=== PATIENT | female | born 1960 | race Caucasian/White ===

== ENCOUNTER 2024-09-26 09:07 | Emergency (ER) | payer OTHER ==
--- OUTSIDE RECORDS SUMMARY | 2024-09-26 09:12 | XMS REPORT | Continuity of Care Document ---
Author Name Unknown Address [address] [facility] [address] [place] [address] [facility] Address [address] [place] [address] Care Team Providers Care Chief Digital Media Officer Name Role Phone PCP, PATIENT DOES NOT HAVE A Primary Care Physic leslie Unavailable HOMER LESTER Attending Clinician Unavailabl e GONZALES BAILEY Attending Clinician Unavailable CRISTELA FARAH Attending Clinician Unavailable CRISTELA FARAH Attending Clinician Unavailable DEEPA CAI Attending Clinician Unavailable Deepa Cai MD Attending Clinician [phone] Julienne Mayer LMSW Attending Clinician Unava ilable Doctor Unassigned, [place] Attending Clinician U navailable AMBER RUCKER Attending Clinician Unavailable BETO CARTY Attending Clinician Unavailable CARMEN WAEKFIELD Attending Clinician Unavailable Shaye Crockett RN Attending Clinician [phone] Whit Dahl MD Attending Clinician [phone] Gonzales Bailey DO Attending Clinician [phone] GONZALES BAILEY Admitting Clinician Unavailable Gonzales Bailey DO Admitting Clinician +[phone] Problems Condition Name Condition Details Condition Category Status Onset Date Resolution Date Last Treatment Date Treating Clinician Comments Source Hypertensi ve disorder Hypertensi ve Disorder Problem Active 08-10 00:00: 00 [facility] Cerebrovas cular accident Cerebrovas cular Accident Problem Active 08-10 00:00: 00 [facility] Obesity (BMI 30-39.9) Obesity (BMI 30-39.9) Disease Active 01-13 00:00: 00 [facility] NSTEMI (non-ST elevated myocardial infarction ) NSTEMI (non-ST elevated myocardial infarction ) Disease Active 01-12 00:00: 00 [facility] Colon cancer Colon cancer Disease Recurre nce 01-12 00:00: 00 [facility] HTN (hypertens ion) HTN (hypertens ion) Disease Active 01-12 00:00: 00 [facility] Allergies, Adverse Reactions, Alerts Allergy Name Allergy Type Status Severity Reaction(s) Onset Date Inactive Date Treating Clinician Comments Source NO KNOWN ALLERGIE S Drug Class Active [facility] Social History Social Habit Start Date Stop Date Quantity Comments Source History of tobacco use Smokes tobacco daily [facility] Exposure to SARS-CoV-2 (event) Not sure [facility] History of Social function 2023-08-12 00:00:00 2023-08-12 00:00:00 [facility] Tobacco use and exposure 2023-08-05 00:00:00 2023-08-05 00:00:00 Smokeless tobacco non-user [facility] Alcohol intake 2023-08-05 00:00:00 2023-08-05 00:00:00 Ex-drinker (finding) [facility] Sex Assigned At 1960 00:00:00 1960 00:00:00 [facility] Smoking Status Start Date Stop Date Source Never Smoker [facility] Smokes tobacco daily 2023-08-05 00:00:00 [facility] Medications Ordered Medication Name Filled Medication Name Start Date Stop Date Current Medication? Ordering Clinician Indication Dosage Frequency Signature (SIG) Comments Components Source fluconazole 150 mg tablet 08-09 00:00: 00 08-10 05:59 :00 No [id number] 150mg Take 1 tablet by mouth once now for 1 dose. [facility] lisinopriL 10 mg tablet 2022-08 09:33: 34 Yes 10mg Take 1 tablet by mouth in the morning. [facility] lisinopriL 10 mg tablet 01-14 22:12: 47 Yes 10mg Take 10 mg by mouth daily. [facility] HYDROcodone -acetaminop hen (NORCO 5) 5-325 mg tablet 1 tablet 01-14 20:19: 00 01-16 20:18 :00 No 1{tbl} 1 tablet, Oral, Q6HPRN, Starting Tue01/14/21 at 1519, Until Tue01/16/21 at 1518, Routine, Pain (scale 4-6) [facility] lisinopriL 10 mg tablet 01-14 17:12: 47 Yes 10mg Take 10 mg by mouth daily. [facility] FENTanyl PF (SUBLIMAZE (PF)) injection 01-14 15:49: 41 01-14 15:49 :41 No Slow IV Push, TITRATE - FOR PROCEDURE USE, 1 dose, Starting Tue01/14/21 at 1049, Until Tue01/14/21 at 1049, Routine [facility] midazolam (VERSED) injection 01-14 15:49: 32 01-14 15:49 :32 No IV Push, TITRATE - FOR PROCEDURE USE, 1 dose, Starting Tue01/14/21 at 1049, Until Tue01/14/21 at 1049, Routine [facility] verapamiL (ISOPTIN) injection 01-14 15:48: 24 01-14 15:48 :24 No Intravenou s, TITRATE - FOR PROCEDURE USE, 1 dose, Starting Tue01/14/21 at 1048, Until Tue01/14/21 at 1048, Routine [facility] nitroglycer in (TRIDIL) 2 mg in 10 mL D5W for Cardiac Cath 01-14 15:48: 09 01-14 15:48 :09 No Intravenou s, TITRATE - FOR PROCEDURE USE, 1 dose, Starting Tue01/14/21 at 1048, Until Tue01/14/21 at 1048, Routine [facility] [place] [place] heparin 1,000 unit/mL injection 01-14 15:47: 48 01-14 15:47 :48 No Slow IV Push, TITRATE - FOR PROCEDURE USE, 1 dose, Starting Tue01/14/21 at 1047, Until Tue01/14/21 at 1047, Routine [facility] [place] FENTanyl PF (SUBLIMAZE (PF)) injection 01-14 15:44: 59 01-14 15:44 :59 No Slow IV Push, TITRATE - FOR PROCEDURE USE, 1 dose, Starting Tue01/14/21 at 1044, Until Tue01/14/21 at 1044, Routine [facility] midazolam (VERSED) injection 01-14 15:44: 52 01-14 15:44 :52 No IV Push, TITRATE - FOR PROCEDURE USE, 1 dose, Starting Tue01/14/21 at 1044, Until Tue01/14/21 at 1044, Routine [facility] lidocaine 1% (PF) (XYLOCAINE) injection 01-14 15:44: 14 01-14 15:44 :14 No Infiltrati on, TITRATE - FOR PROCEDURE USE, 1 dose, Starting Tue01/14/21 at 1044, Until Tue01/14/21 at 1044, Routine [facility] NaCl 0.9% (NS) bolus infusion 01-14 15:41: 43 01-14 15:56 :43 No IV Infusion, CONTINUOUS PRN, Starting Tue01/14/21 at 1041, Until Tue01/14/21 at 1056, STAT [facility] FENTanyl PF (SUBLIMAZE (PF)) injection 01-14 15:35: 22 01-14 15:35 :22 No Slow IV Push, TITRATE - FOR PROCEDURE USE, 1 dose, Starting Tue01/14/21 at 1035, Until Tue01/14/21 at 1035, Routine [facility] [place] [place] midazolam (VERSED) injection 01-14 15:35: 11 01-14 15:35 :11 No IV Push, TITRATE - FOR PROCEDURE USE, 1 dose, Starting Tue01/14/21 at 1035, Until Tue01/14/21 at 1035, Routine [facility] aspirin 81 mg chewable tablet 01-14 00:00: 00 Yes [id number] 81mg Take 1 tablet by mouth daily. [facility] pantoprazol e 40 mg EC tablet 01-14 00:00: 00 Yes [id number] 40mg Take 1 tablet by mouth daily. [facility] atorvastati n 40 mg tablet 01-14 00:00: 00 Yes [id number] 40mg Take 1 tablet by mouth every evening. [facility] levoFLOXaci n 500 mg tablet 01-14 00:00: 00 Yes [id number] 500mg Take 1 tablet by mouth every 24 (twenty-fo ur) hours. [facility] ondansetron 4 mg tablet 01-14 00:00: 00 Yes [id number] 4mg Take 1 tablet by mouth every 8 (eight) hours as needed for N/V unresponsi ve to Promethazi ne. [facility] levoFLOXaci n in D5W (LEVAQUIN) 500 mg/100 mL Piggyback 500 mg 01-13 19:00: 00 01-16 18:59 :00 No 500mg 500 mg, IV Piggyback, Administer over 60 Minutes, Q24H ABX, 3 doses, First dose on Tue01/13/21 at 1400, Last dose on Tue01/15/21 at 1400, ISABELLE
Re ason for Anti-Infec tive: Empiric Therapy for Suspected Infection< br>Empiric Therapy Site: Abdominal< br>Duratio n of therapy: 72 hours [facility] aspirin chewable tablet 81 mg 01-13 14:00: 00 Yes 81mg 81 mg, Oral, DAILY, First dose on Tue01/13/21 at 0900, Until Discontinu ed, Routine [facility] lisinopriL (PRINIVIL,Z ESTRIL) tablet 10 mg 01-13 14:00: 00 Yes 10mg 10 mg, Oral, DAILY, First dose on Tue01/13/21 at 0900, Until Discontinu ed, Routine [facility] [place] [place] iopamidol (ISOVUE 370-500 mL) injection 100 mL 01-13 08:12: 00 01-13 08:12 :00 No [id number] 100mL 100 mL, Intravenou s, ONCE, 1 dose, Tue01/13/21 at 0330, Routine [facility] heparin 5,000 unit/mL injection 5,000 Units 01-13 03:46: 57 01-14 16:23 :39 No 5000U 5,000 Units, Slow IV Push, PRN, Starting Tue01/12/21 at 2246, Until Tue01/14/21 at 1123, Routine, heparin drip [facility] zolpidem (AMBIEN) tablet 5 mg 01-13 02:04: 42 Yes 5mg 5 mg, Oral, QHSPRN, Starting Tue01/12/21 at 2104, Until Discontinu ed, Routine, Insomnia [facility] ketorolac (TORADOL) injection 30 mg 01-12 22:28: 52 01-14 01:59 :00 No 30mg 30 mg, Intramuscu lar, Q6HPRN, 4 doses, Starting Tue01/12/21 at 1728, Until Discontinu ed, Routine, Pain (scale 7-10)
F aculty member approving Restricted medication : BRANDEN SCHAFFER [facility] pantoprazol e (PROTONIX) 40 mg in NaCl 0.9% (NS) 100 mL MINI-BAG 01-12 18:00: 00 Yes 40mg 40 mg, IV Piggyback, Q12H, First dose on Tue01/12/21 at 1300, Until Discontinu ed, 100 mL [facility] nitroglycer in (NITROSTAT) sublingual tablet 0.4 mg 01-12 17:50: 11 Yes .4mg 0.4 mg, Sublingual , Q5MIN PRN, Starting Tue01/12/21 at 1250, Until Discontinu ed, Routine, Chest pain [facility] [place] morpHINE injection 2 mg 01-12 17:49: 56 Yes 2mg 2 mg, Slow IV Push, Q3HPRN, Starting Tue01/12/21 at 1249, Until Discontinu ed, Routine, Chest pain, 1-[address] [facility] [place] ondansetron (ZOFRAN (PF)) injection 4 mg 01-12 17:41: 19 Yes 4mg 4 mg, Slow IV Push, Q6HPRN, Starting Tue01/12/21 at 1241, Until Discontinu ed, Routine, Nausea and Vomiting (N/V) [facility] [place] [place] HYDROcodone -acetaminop hen (NORCO 5) 5-325 mg tablet 1 tablet 01-12 17:41: 11 01-14 17:40 :11 No 1{tbl} 1 tablet, Oral, Q6HPRN, Starting Tue01/12/21 at 1241, Until Tue01/14/21 at 1240, Routine, Pain (scale 4-6) [facility] [place] acetaminoph en (TYLENOL) tablet 650 mg 01-12 17:41: 08 Yes 650mg 650 mg, Oral, Q6HPRN, Starting Tue01/12/21 at 1241, Until Discontinu ed, Routine, Pain (scale 1-3) [facility] [place] [place] diazepam diazepam No diazepam Sneha [facility] sucralfate 1 gram tablet Take 1 tablet 4 times a day by oral route. sucralfate 1 gram tablet Take 1 tablet 4 times a day by oral route. No 1 QID sucralfate 1 gram tablet Take 1 tablet 4 times a day by oral route. Snhea [facility] Vital Signs Vital Name Observation Time Observation Value Nikki morales Body Weight 2024-08-10 00:00:00 105 [lb_av] [facility] BP Diastolic 2024-08-10 00:00:00 72 mm[Hg] [facility] BP Systolic 2024-08-10 00:00:00 112 mm[Hg] Ryan cruz [facility] Systolic blood pressure 2023-08-19 19:48:00 135 mm[Hg] [facility] Diastolic blood pressure 2023-08-19 19:48:00 89 mm[Hg] [facility] Heart rate 2023-08-19 19:47:00 72 /min [facility] Body temperature 2023-08-19 19:47:00 36.67 Jennifer [facility] Respiratory rate 2023-08-19 19:47:00 17 /min [facility] Body height 2023-08-19 19:47:00 152.4 cm [facility] Body weight 2023-08-19 19:47:00 68.13 kg [facility] BMI 2023-08-19 19:47:00 29.33 kg/m2 [facility] Systolic blood pressure 2023-08-12 21:05:00 106 mm[Hg] [facility] Diastolic blood pressure 2023-08-12 21:05:00 76 mm[Hg] [facility] Heart rate 2023-08-12 21:05:00 79 /min [facility] Body temperature 2023-08-12 21:05:00 36.78 Jennifer [facility] Respiratory rate 2023-08-12 21:05:00 17 /min [facility] Body weight 2023-08-12 21:05:00 68.493 kg [facility] BMI 2023-08-12 21:05:00 27.62 kg/m2 [facility] Systolic blood pressure 2023-08-05 15:32:00 123 mm[Hg] [facility] Diastolic blood pressure 2023-08-05 15:32:00 84 mm[Hg] [facility] Heart rate 2023-08-05 15:32:00 74 /min [facility] Body temperature 2023-08-05 15:32:00 36.44 Jennifer [facility] Respiratory rate 2023-08-05 15:32:00 18 /min [facility] Body height 2023-08-05 15:32:[address] [facility] Body weight 2023-08-05 15:32:00 69.4 kg [facility] BMI 2023-08-05 15:32:00 27.98 kg/m2 [facility] Heart rate 2021-01-14 19:59:00 109 /min [facility] [place] [place] Oxygen saturation in Arterial blood by Pulse oximetry 2021-01-14 19:59:00 93 /min [facility] Systolic blood pressure 2021-01-14 19:58:00 110 mm[Hg] [facility] Diastolic blood pressure 2021-01-14 19:58:00 78 mm[Hg] [facility] Body temperature 2021-01-14 19:58:00 37.94 Jennifer [facility] Respiratory rate 2021-01-14 19:58:00 18 /min [facility] Body height 2021-01-14 15:22:19 157.5 cm [facility] Body weight 2021-01-14 15:22:19 74.5 kg [facility] BMI 2021-01-14 15:22:19 30.04 kg/m2 [facility] Heart rate 2021-01-14 19:59:00 109 /min [facility] [place] [place] Oxygen saturation in Arterial blood by Pulse oximetry 2021-01-14 19:59:00 93 /min [facility] Systolic blood pressure 2021-01-14 19:58:00 110 mm[Hg] [facility] Diastolic blood pressure 2021-01-14 19:58:00 78 mm[Hg] [facility] Body temperature 2021-01-14 19:58:00 37.94 Jennifer [facility] Respiratory rate 2021-01-14 19:58:00 18 /min [facility] Body height 2021-01-14 15:22:19 157.5 cm [facility] Body weight 2021-01-14 15:22:19 74.5 kg [facility] BMI 2021-01-14 15:22:19 30.04 kg/m2 [facility] Procedures Procedure Date / Time Performed Performing Clinician Source POCT URINALYSIS W/O SPECIFIC GRAVITY 2023-08-19 00:00:00 Cristela Farah [facility] URINALYSIS MICROSCOPIC 2023-08-05 16:23:00 Harris Farah [facility] URINE CULTURE 2023-08-05 16:23:00 Cristela Farah [facility] ASSIGNMENT OF BENEFITS 2023-08-05 15:18:13 Docto r Unassigned, [place] [facility] REFERRAL- REQUEST/RESPONSE 2023-07-28 06:01:00 D mariano Unassigned, [place] [facility] CATH PROCEDURE LOG 2021-01-14 15:44:34 Doctor Un assigned, [place] [facility] CATH PROCEDURE LOG 2021-01-14 15:44:34 Doctor Un assigned, [place] [facility] ACTIVATED PARTIAL THRMPLAS ROSS 2021-01-14 13:33:00 Lynn [facility] ACTIVATED PARTIAL THRMPLAS ROSS 2021-01-14 13:33:00 Lynn [facility] ACTIVATED PARTIAL THRMPLAS ROSS 2021-01-14 01:24:00 Lynn [facility] ACTIVATED PARTIAL THRMPLAS ROSS 2021-01-14 01:24:00 [facility] 2021-01-13 22:32:54 [facility] 2021-01-13 22:32:54 Gonzales Bailey [facility] ACTIVATED PARTIAL THRMPLAS ROSS 2021-01-13 17:20:00 Lynn [facility] ACTIVATED PARTIAL THRMPLAS ROSS 2021-01-13 17:20:00 Lynn [facility] DUPLEX VENOUS LEGS BILATERAL - BY VASCULAR LAB 2021-01-13 15:26:07 Branden Schaffer [facility] TROPONIN I 2021-01-13 13:26:00 Teq[place], [facility] TROPONIN I 2021-01-13 13:26:00 Dilciamaribel [facility] ACTIVATED PARTIAL THRMPLAS ROSS 2021-01-13 10:27:00 Dilciamaribel [facility] ACTIVATED PARTIAL THRMPLAS ROSS 2021-01-13 10:27:00 Dilciamaribel [facility] CBC WITH DIFF 2021-01-13 10:26:00 [facility] BASIC METABOLIC PANEL (NA, K, CL, CO2, GLUCOSE, BUN, CREATININE, CA) 2021-01-13 10:26:00 Dilciamaribel [facility] HEPATIC FUNCTION PANEL ([id number]) (ALB,T.PRO,BILI T,BU/BC,ALT,AST,ALK PHOS) 2021-01-13 10:26:00 Dilciamaribel [facility] TOTAL BETA HCG ASSAY 2021-01-13 10:26:00 Fernando Rhodes [facility] HEPATIC FUNCTION PANEL ([id number]) (ALB,T.PRO,BILI T,BU/BC,ALT,AST,ALK PHOS) 2021-01-13 10:26:00 Melania [facility] BASIC METABOLIC PANEL (NA, K, CL, CO2, GLUCOSE, BUN, CREATININE, CA) 2021-01-13 10:26:00 Dilciamaribel [facility] TOTAL BETA HCG ASSAY 2021-01-13 10:26:00 Fernando Rhodes [facility] CBC WITH DIFF 2021-01-13 10:26:00 Dilciamaribel [facility] CT ANGIOGRAM CHEST 2021-01-13 08:17:08 Sarbjit [facility] CT ANGIOGRAM CHEST 2021-01-13 08:17:08 Sarbjit [facility] TROPONIN I 2021-01-13 02:21:00 Dilciamaribel [facility] ACTIVATED PARTIAL THRMPLAS ROSS 2021-01-13 02:21:00 Gonzales Bailey [facility] TROPONIN I 2021-01-13 02:21:00 [facility] ACTIVATED PARTIAL THRMPLAS ROSS 2021-01-13 02:21:00 Gonzales Bailey [facility] TRANSTHORACIC ECHO (TTE) COMPLETE 2021-01-12 22:09:43 Lynn [facility] TRANSTHORACIC ECHO (TTE) COMPLETE 2021-01-12 22:09:43 Gonzales Bailey [facility] TROPONIN I 2021-01-12 18:40:00 Gonzales Bailey [facility] TROPONIN I 2021-01-12 18:40:00 Gonzales Bailey [facility] Operation on Intestine [place] [facility] Cholecystectomy [place] [facility] Encounters Start Date/Time End Date/Time Encounter Type Admission Type Attending Clinicians Care Facility Care Department Encounter ID Source 2024-10-08 12:15:00 Inpatient HOMER PURDY [facility] [id number] [facility] 2021-01-12 11:47:00 Inpatient U GONZALES BAILEY [facility] [id number] [facility] 2024-08-10 00:00:00 2024-08-10 00:00:00 Homer Lester MD: [address] [place] [address] , Ph. [facility] [phone] [facility] 2023-09-02 13:30:00 2023-09-02 13:30:00 Outpatient CRISTELA CHÁVEZ [facility] [id number] [facility] 2023-08-29 09:30:00 2023-08-29 09:30:00 Outpatient CRISTELA CHÁVEZ [facility] [id number] [facility] 2023-08-19 14:00:00 2023-08-19 14:30:00 Office Visit Cristela Farah [facility] [id number] [id number] [id number] [facility] 2023-08-19 14:00:00 2023-08-19 14:00:00 Outpatient R GAGANGINJACKI [facility] [id number] [facility] 2023-08-16 00:00:00 2023-08-16 00:00:00 Telephone Cristela Farah [facility] [id number] 350.1.13.10 4.2.7.2.686 [id number] [facility] 2023-08-12 14:30:00 2023-08-12 15:43:44 [address] [id number] [facility] 2023-08-12 14:30:00 2023-08-12 15:43:44 Office Visit Deepa Cai [facility] [id number] [id number] [id number] [facility] 2023-08-11 00:00:00 2023-08-11 00:00:00 Patient Outreach Julienne Mayer R [facility] [id number] 350.1.13.10 4.2.7.2.686 [id number] [facility] 2023-08-10 00:00:00 2023-08-10 00:00:00 Patient Secure Msg Doctor Unassigned, [place] [facility] [id number] 350.1.13.10 4.2.7.2.686 [id number] [facility] 2023-08-10 00:00:00 2023-08-10 00:00:00 Telephone Cristela Farah [facility] [id number] 350.1.13.10 4.2.7.2.686 [id number] [facility] 2023-08-05 09:30:00 2023-08-05 10:34:44 Outpatient R CRISTELA FARAH [facility] [id number] [facility] 2023-08-05 09:30:00 2023-08-05 10:34:44 Office Visit Cristela Farah [facility] [id number] 350.1.13.10 4.2.7.2.686 [id number] [facility] 2023-08-05 00:00:00 2023-08-05 00:00:00 Orders Only Doctor Unassigned, [place] [facility] [id number] 350.1.13.10 4.2.7.2.686 [id number] [facility] 2023-07-28 00:00:00 2023-07-28 00:00:00 Orders Only Doctor Unassigned, [place] [facility] [id number] 350.1.13.10 4.2.7.2.686 [id number] [facility] 2023-07-27 10:59:52 2023-07-27 10:59:52 Outpatient [facility] [id number] Yeung 2023-04-24 18:38:00 2023-04-24 22:15:00 Emergency ER AMBER RUCKER [facility] [id number] [facility] 2022-07-05 14:57:46 2022-07-05 14:57:46 Outpatient [facility] [id number] Yeung 2022-03-20 10:03:00 2022-03-22 16:16:00 Outpatient E BETO CARTY [facility] [id number] [facility] 2022-03-21 10:15:00 2022-03-21 10:15:00 Outpatient CARMEN [place] [facility] [id number] [facility] 2021-01-15 00:00:00 2021-01-15 00:00:00 Transition of Care Keira Shaye Bunn [id number] 350.1.13.10 4.2.7.2.686 [id number] [facility] 2021-01-12 11:47:00 2021-01-14 17:12:00 Hospital Encounter Whit Dahl Tekeniaimeder, Gonzales 1.2.840.1 [id number] [facility] 2021-01-12 00:00:00 2021-01-12 00:00:00 Travel 1.2.840.1 [id number] 350.1.13.10 4.2.7.3.698 [id number] [facility] Results Test Description Test Time Test Comments Results Result Co mments [facility] w/o Specific [id number] 19:59:00* Test Item Value Reference Range Interpretation Comme nts POCT PH U (test code = 3254) 6 mg/dl 5-8 POCT U LEUK EST (test code = 3263) ++ Negative - Negative POCT U NIT (test code = 3262) neg Negative - Negati ve POCT U PROT (test code = 3259) trace Negative - Negat gonzalez POCT U GLU (test code = 3256) neg Negative - Negati ve POCT U KETONE (test code = 3258) neg Negative - Neg ative POCT U BLD (test code = 3257) 250 Negative - Negati ve [facility] [id number] 14:12:42* Test Item Value Reference Range Interpretation Comme nts APTT Patient (test code = 3173-2) See_Comment [Automated message] The system which generated this result transmitted reference range: 26 - 36 Seconds. The reference range was not used to interpret this result as normal/abnormal. FAISAL (test code = FAISAL) The [facility] patient population mean normal value for aPTT is 30 seconds. Lab Interpretation (test code = 05365-4) Normal [facility] [id number] 14:12:42* Test Item Value Reference Range Interpretation Comme nts APTT Patient (test code = 3173-2) See_Comment [Automated message] The system which generated this result transmitted reference range: 26 - 36 Seconds. The reference range was not used to interpret this result as normal/abnormal. FAISAL (test code = FAISAL) The [facility] patient population mean normal value for aPTT is 30 seconds. Lab Interpretation (test code = 69414-0) Normal [facility] BETA HCG [id number] 04:46:27* Test Item Value Reference Range Interpretation Comme nts BETA HCG (test code = 4963050068) <2.39 See_Comment [Automated [employer] Xactium] The system which generated this result transmitted reference range: Non- female and male patients: <5 mIU/mL. The reference range was not used to interpret this result as normal/abnormal. FAISAL (test code = FAISAL) Gestational Age ?Range (mIU/mL) 1-10 ?Weeks ?[id number] Weeks ?87092-55604925-63 Weeks ?6477-72011532-51 Weeks ?8622-049881 Biotin has been reported to cause a negative bias, interpret results relative to patient's use of biotin. [facility] BETA HCG [id number] 04:46:27* Test Item Value Reference Range Interpretation Comme nts BETA HCG (test code = 8659738551) <2.39 See_Comment [Automated Appaturea ge] The system which generated this result transmitted reference range: Non- female and male patients: <5 mIU/mL. The reference range was not used to interpret this result as normal/abnormal. FAISAL (test code = FAISAL) Gestational Age ?Range (mIU/mL) 1-10 ?Weeks ?[phone] Weeks ?40336-84196485-67 Weeks ?3443-90093046-17 Weeks ?3481-003730 Biotin has been reported to cause a negative bias, interpret results relative to patient's use of biotin. [facility] [id number] 02:25:32* Test Item Value Reference Range Interpretation Comme nts APTT Patient (test code = 3173-2) See_Comment H [Automated Appaturea ge] The system which generated this result transmitted reference range: 26 - 36 Seconds. The reference range was not used to interpret this result as normal/abnormal. Lab Interpretation (test code = 33962-5) Abnormal [facility] [id number] 22:55:07Sludge and stones the gallbladder. Mild wall thickening withoutsignificant pericholecystic edema and may represent mild or earlycholecystitis.2. No bile duct dilation.3. Mild fat infiltration of the liver. RL: 6200 END OF REPORT Ordering Physician: GONZALES BAILEY Clinical Indication: abd pain Additional Clinical Information: Technical Quality:Good Comparison: None Technique: Gallbladder ultrasound Findings: The pancreas is no suture by extensive bowel gas. The gallbladder is quite distended with moderate sludge. The common bileduct measures 4 mm. There are also some small echogenic gallstones. Thegallbladder wall thickness is slightly thickened at 3 to 4 mm. Patient hasa sonographically negative Gilmore sign but was premedicated. The vi sualized portions of liver are normal in size. Echogenicity isslightly increased. [facility], Radiant Results Inft User - 01/13/2021 5:56 PM CDT Ordering Physician: GONZALES Alegreical Indication: abd pain Additional Clinical Information:Technical Quality: GoodComparison: NoneTechnique: Gallbladder ultrasoundFindings: The pancreas is no suture by extensive bowel gas.The gallbladder is quite distended with moderate sludge. The common bileduct measures 4 mm. There are also some small echogenic gallstones. Thegallbladder wall thickness is slightly thickened at 3 to 4 mm. Patient hasa sonographically negative Gilmore sign but was premedicated.The visualized portions of liver are normal in size. Echogenicity isslightly increased.IMPRESSIONSludge and stones the gallbladder. Mild wall thickening withoutsignificant pericholecystic edema and may represent mild or earlycholecystitis.2. No bile duct dilation.3. Mild fat infiltration of the l iver.RL: 6200END OF REPORT [facility] GALL [id number] 22:55:07Sludge and stones the gallbladder. Mild wall thickening withoutsignificant pericholecystic edema and may represent mild or earlycholecystitis.2. No bile duct dilation.3. Mild fat infiltration of the liver. RL: 6200 END OF REPORT Ordering Physician: GONZALES BAILEY Clinical Indication: abd pain Additional Clinical Information: Technical Quality:Good Comparison: None Technique: Gallbladder ultrasound Findings: The pancreas is no suture by extensive bowel gas. The gallbladder is quite distended with moderate sludge. The common bileduct measures 4 mm. There are also some small echogenic gallstones. Thegallbladder wall thickness is slightly thickened at 3 to 4 mm. Patient hasa sonographically negative Gilmore sign but was premedicated. The vi sualized portions of liver are normal in size. Echogenicity isslightly increased. [facility], Radiant Results Inft User - 01/13/2021 5:56 PM CDT Ordering Physician: GONZALES BARONElinical Indication: abd pain Additional Clinical Information:Technical Quality: GoodComparison: NoneTechnique: Gallbladder ultrasoundFindings: The pancreas is no suture by extensive bowel gas.The gallbladder is quite distended with moderate sludge. The common bileduct measures 4 mm. There are also some small echogenic gallstones. Thegallbladder wall thickness is slightly thickened at 3 to 4 mm. Patient hasa sonographically negative Gilomre sign but was premedicated.The visualized portions of liver are normal in size. Echogenicity isslightly increased.IMPRESSIONSludge and stones the gallbladder. Mild wall thickening withoutsignificant pericholecystic edema and may represent mild or earlycholecystitis.2. No bile duct dilation.3. Mild fat infiltration of the l iver.RL: 6200END OF REPORT [facility] [id number] 18:12:51* Test Item Value Reference Range Interpretation Comme [facility] APTT Patient (test code = 3173-2) See_Comment H [Automated message] The system which generated this result transmitted reference range: 26 - 36 Seconds. The reference range was not used to interpret this result as normal/abnormal. FAISAL (test code = FAISAL) The [facility] patient population mean normal value for aPTT is 30 seconds. Lab Interpretation (test code = 52297-2) Abnormal [facility] Hospital[facility] [id number] 14:11:41* Test Item Value Reference Range Interpretation Comme [facility] TROPONIN I (test code = 4843208520) 0.378 ng/mL See_Comment H [Automated message] The system which generated this result transmitted reference range: <=0.034. The reference range was not used to interpret this result as normal/abnormal. FAISAL (test code = FAISAL) Equal or Less than 0.034 ng/ml---Normal ?Note: Cardiac troponin begins to rise 3-4 hours after the onset of ischemia. Repeat in 4-6 hours if the sample was drawn within 3-4 hours of the onset of the symptom and found normal. Between 0.035 and 0.120 ng/mL--- Borderline. Questionable myocardial injury or necrosis ? ?Note: Serial measurement may be necessary to confirm or exclude the diagnosis of myocardial injury or necrosis; Clinical correlation (symptoms, EKGs, imaging studies, and others) required; Repeat in 4-6 hours if clinically indicated. ? Equal or Higher than 0.121 ng/mL---Abnormal. Myocardial Injury or Necrosis Likely ? Biotin has been reported to cause a negative bias, interpret results relative to patient's use of biotin. ? Lab Interpretation (test code = 14312-8) Abnormal [facility] [id number] 14:11:41* Test Item Value Reference Range Interpretation Comme nts TROPONIN I (test code = 9214933724) 0.378 ng/mL See_Comment H [Automated message] The system which generated this result transmitted reference range: <=0.034. The reference range was not used to interpret this result as normal/abnormal. FAISAL (test code = FAISAL) Equal or Less than 0.034 ng/ml---Normal ?Note: Cardiac troponin begins to rise 3-4 hours after the onset of ischemia. Repeat in 4-6 hours if the sample was drawn within 3-4 hours of the onset of the symptom and found normal. Between 0.035 and 0.120 ng/mL--- Borderline. Questionable myocardial injury or necrosis ? ?Note: Serial measurement may be necessary to confirm or exclude the diagnosis of myocardial injury or necrosis; Clinical correlation (symptoms, EKGs, imaging studies, and others) required; Repeat in 4-6 hours if clinically indicated. ? Equal or Higher than 0.121 ng/mL---Abnormal. Myocardial Injury or Necrosis Likely ? Biotin has been reported to cause a negative bias, interpret results relative to patient's use of biotin. ? Lab Interpretation (test code = 79948-9) Abnormal [facility] (25800) (ALB,T.PRO,BILI T,BU/BC,ALT,AST,ALK PHOS)2021-01-13 12:25:47* Test Item Value Reference Range Interpretation Comme nts TOTAL BILI (test code = 4652304707) 0.4 mg/dL 0.1-1.1 BILI UNCON (test code = 1956256787) 0.2 mg/dL 0.1-1.1 BILI CONJ (test code = 3185200443) 0.0 mg/dL 0.0-0.3 T PROTEIN (test code = 6791740864) 6.6 g/dL 6.3-8.2 ALBUMIN (test code = 6672215742) 3.5 g/dL 3.5-5.0 ALK PHOS (test code = 3078436434) 55 U/L 34-122 ALTv (test code = 1742-6) 9 U/L 5-35 AST(SGOT) (test code = 4018563351) 29 U/L 13-40 Lab Interpretation (test cod e = 89104-1) Normal [facility] (58934) (ALB,T.PRO,BILI T,BU/BC,ALT,AST,ALK PHOS)2021-01-13 12:25:47* Test Item Value Reference Range Interpretation Comme nts TOTAL BILI (test code = 5805139037) 0.4 mg/dL 0.1-1.1 BILI UNCON (test code = 2077640703) 0.2 mg/dL 0.1-1.1 BILI CONJ (test code = 2372102524) 0.0 mg/dL 0.0-0.3 T PROTEIN (test code = 7810868637) 6.6 g/dL 6.3-8.2 ALBUMIN (test code = 7897604594) 3.5 g/dL 3.5-5.0 ALK PHOS (test code = 2524206455) 55 U/L 34-122 ALTv (test code = 1742-6) 9 U/L 5-35 AST(SGOT) (test code = 7150466259) 29 U/L 13-40 Lab Interpretation (test cod e = 96478-0) Normal [facility] (NA, K, CL, CO2, GLUCOSE, BUN, CREATININE, CA)2021-01-13 10:45:19* Test Item Value Reference Range Interpretation Comme nts NA (test code = 7482497065) 132 mmol/L 135-145 L K (test code = 3920632966) 4.9 mmol/L 3.5-5.0 CL (test code = 7257952105) 101 mmol/L 98-108 CO2 TOTAL (test code = 4453678661) 29 mmol/L 23-31 AGAP (test code = 6207463969) 2-16 BUN (test code = 5883381810) 23 mg/dL 7-23 GLUCOSE (test code = 5927482161) 130 mg/dL 70-110 H CREATININE (test code = 0984067197) 0.81 mg/dL 0.50-1.04 CALCIUM (test code = 4042436962) 8.7 mg/dL 8.6-10.6 eGFR (test code = 0981640526) mL/min/1.73m2 FAISAL (test code = FAISAL) Association of Glomerular Filtration Rate (GFR) and Staging of Kidney Disease* + --+ --+ ------+| GFR (mL/min/1.73 m2) ?| With Kidney Damage ?| ?Without Kidney Damage+ --------+ --------+ +| ?>90 ?| ?Stage one ?| ? Normal ?+ ---+ ---+ -------+| ?60-89 ?| ?Stage two ?| ? Decreased GFR ? + --+ --+ ------+| ?30-59 ?| ?Stage three ?| ? Stage three ? + --+ --+ ------+| ?15-29 ?| ?Stage four ? | ? Stage four ?+ ---+ ---+ -------+| ?<15 (or dialysis) ? ?| ?Stage five ? | ? Stage five ?+ ---+ ---+ -------+ *Each stage assumes the associated GFR level has been in effect for at least three months. ?Stages 1 to 5, with or without kidney disease, indicate chronic kidney disease. Notes: Determination of stages one and two (with eGFR >59mL/min/1.73 m2) requires estimation of kidney damage for at least three months as defined by structural or functional abnormalities of the kidney, manifested by either:Pathological abnormalities or Markers of kidney damage (including abnormalities in the composition of the blood or urine or abnormalities in imaging tests). Lab Interpretation (test code = 84121-1) Abnormal [facility] Metabolic Panel (NA, K, CL, CO2, GLUCOSE, BUN, CREATININE, CA)2021-01-13 10:45:19* Test Item Value Reference Range Interpretation Comme nts NA (test code = 3051834278) 132 mmol/L 135-145 L K (test code = 5310738139) 4.9 mmol/L 3.5-5.0 CL (test code = 9523861134) 101 mmol/L 98-108 CO2 TOTAL (test code = 5047986136) 29 mmol/L 23-31 AGAP (test code = 6213609251) 2-16 BUN (test code = 1119792714) 23 mg/dL 7-23 GLUCOSE (test code = 3176195402) 130 mg/dL 70-110 H CREATININE (test code = 4298621033) 0.81 mg/dL 0.50-1.04 CALCIUM (test code = 4300808658) 8.7 mg/dL 8.6-10.6 eGFR (test code = 6431215540) mL/min/1.73m2 FAISAL (test code = FAISAL) Association of Glomerular Filtration Rate (GFR) and Staging of Kidney Disease* + --+ --+ ------+| GFR (mL/min/1.73 m2) ?| With Kidney Damage ?| ?Without Kidney Damage+ --------+ --------+ +| ?>90 ?| ?Stage one ?| ? Normal ?+ ---+ ---+ -------+| ?60-89 ?| ?Stage two ?| ? Decreased GFR ? + --+ --+ ------+| ?30-59 ?| ?Stage three ?| ? Stage three ? + --+ --+ ------+| ?15-29 ?| ?Stage four ? | ? Stage four ?+ ---+ ---+ -------+| ?<15 (or dialysis) ? ?| ?Stage five ? | ? Stage five ?+ ---+ ---+ -------+ *Each stage assumes the associated GFR level has been in effect for at least three months. ?Stages 1 to 5, with or without kidney disease, indicate chronic kidney disease. Notes: Determination of stages one and two (with eGFR >59mL/min/1.73 m2) requires estimation of kidney damage for at least three months as defined by structural or functional abnormalities of the kidney, manifested by either:Pathological abnormalities or Markers of kidney damage (including abnormalities in the composition of the blood or urine or abnormalities in imaging tests). Lab Interpretation (test code = 86179-1) Abnormal [facility] [id number] 10:43:17* Test Item Value Reference Range Interpretation Comme nts APTT Patient (test code = 3173-2) See_Comment H [Automated messa ge] The system which generated this result transmitted reference range: 26 - 36 Seconds. The reference range was not used to interpret this result as normal/abnormal. Lab Interpretation (test code = 86584-7) Abnormal [facility] HospitalCBC with [id number] 10:32:58* Test Item Value Reference Range Interpretation Comme nts WBC (test code = 6690-2) See_Comment H [Automated message] The system which generated this result transmitted reference range: 4.30 - 11.10 10*3/?L. The reference range was not used to interpret this result as normal/abnormal. RBC (test code = 789-8) See_Comment L [Automated message] The system which generated this result transmitted reference range: 3.93 - 5.25 10*6/?L. The reference range was not used to interpret this result as normal/abnormal. HGB (test code = 718-7) 11.5 g/dL 11.6-15.0 L HCT (test code = 4544-3) 34.7 % 35.7-45.2 L MCV (test code = 787-2) 90.1 fL 80.6-95.5 MCH (test code = 785-6) 29.9 pg 25.9-32.8 MCHC (test code = 786-4) 33.1 g/dL 31.6-35.1 RDW-SD (test code = 14844-8) 41.9 fL 39.0-49.9 RDW-CV (test code = 788-0) 12.8 % 12.0-15.5 PLT (test code = 777-3) See_Comment [Automated message] The system which generated this result transmitted reference range: 166 - 358 10*3/?L. The reference range was not used to interpret this result as normal/abnormal. MPV (test code = 32198-2) 11.0 fL 9.5-12.9 NRBC/100 WBC (test code = 0002606734) See_Comment [Automated message] The system which generated this result transmitted reference range: 0.0 - 10.0 /100 WBCs. The reference range was not used to interpret this result as normal/abnormal. NRBC x10^3 (test code = 8310004267) <0.01 See_Comment [Automated message] The system which generated this result transmitted reference range: 10*3/?L. The reference range was not used to interpret this result as normal/abnormal. GRAN MAT (NEUT) % (test code = 770-8) 86.8 % IMM GRAN % (test code = 9248524656) 0.60 % LYMPH % (test code = 736-9) 6.7 % MONO % (test code = 5905-5) 5.6 % EOS % (test code = 713-8) 0.1 % BASO % (test code = 706-2) 0.2 % GRAN MAT x10^3(ANC) (test code = 8355790622) 13.75 10*3/uL 1.88-7.09 H IMM GRAN x10^3 (test code = 7107494902) 0.09 10*3/uL 0.00-0.06 H LYMPH x10^3 (test code = 731-0) 1.06 10*3/uL 1.32-3.29 L MONO x10^3 (test code = 742-7) 0.88 10*3/uL 0.33-0.92 EOS x10^3 (test code = 711-2) <0.03 0.03-0.39 L BASO x10^3 (test code = 704-7) 0.03 10*3/uL 0.01-0.07 Lab Interpretation (test code = 66338-8) Abnormal [facility] with [id number] 10:32:58* Test Item Value Reference Range Interpretation Comme nts WBC (test code = 6690-2) See_Comment H [Automated message] The system which generated this result transmitted reference range: 4.30 - 11.10 10*3/?L. The reference range was not used to interpret this result as normal/abnormal. RBC (test code = 789-8) See_Comment L [Automated message] The system which generated this result transmitted reference range: 3.93 - 5.25 10*6/?L. The reference range was not used to interpret this result as normal/abnormal. HGB (test code = 718-7) 11.5 g/dL 11.6-15.0 L HCT (test code = 4544-3) 34.7 % 35.7-45.2 L MCV (test code = 787-2) 90.1 fL 80.6-95.5 MCH (test code = 785-6) 29.9 pg 25.9-32.8 MCHC (test code = 786-4) 33.1 g/dL 31.6-35.1 RDW-SD (test code = 21090-9) 41.9 fL 39.0-49.9 RDW-CV (test code = 788-0) 12.8 % 12.0-15.5 PLT (test code = 777-3) See_Comment [Automated message] The system which generated this result transmitted reference range: 166 - 358 10*3/?L. The reference range was not used to interpret this result as normal/abnormal. MPV (test code = 02042-0) 11.0 fL 9.5-12.9 NRBC/100 WBC (test code = 1220705962) See_Comment [Automated message] The system which generated this result transmitted reference range: 0.0 - 10.0 /100 WBCs. The reference range was not used to interpret this result as normal/abnormal. NRBC x10^3 (test code = 1350589871) <0.01 See_Comment [Automated message] The system which generated this result transmitted reference range: 10*3/?L. The reference range was not used to interpret this result as normal/abnormal. GRAN MAT (NEUT) % (test code = 770-8) 86.8 % IMM GRAN % (test code = 0454644158) 0.60 % LYMPH % (test code = 736-9) 6.7 % MONO % (test code = 5905-5) 5.6 % EOS % (test code = 713-8) 0.1 % BASO % (test code = 706-2) 0.2 % GRAN MAT x10^3(ANC) (test code = 9405059816) 13.75 10*3/uL 1.88-7.09 H IMM GRAN x10^3 (test code = 8833921900) 0.09 10*3/uL 0.00-0.06 H LYMPH x10^3 (test code = 731-0) 1.06 10*3/uL 1.32-3.29 L MONO x10^3 (test code = 742-7) 0.88 10*3/uL 0.33-0.92 EOS x10^3 (test code = 711-2) <0.03 0.03-0.39 L BASO x10^3 (test code = 704-7) 0.03 10*3/uL 0.01-0.07 Lab Interpretation (test code = 63976-6) Abnormal [facility] [id number] 09:52:461. ?No pulmonary arterial embolism or acute aortic pathology. 2. ?Dependent and subsegmental atelectasis an/or scarring. No CT findingsto suggest pneumonia. 3. ?Mild cardiomegaly. No pericardial effusion or evidence of right heartstrain. 4. ?Aortic atherosclerosis and coronary artery calcification.5. ?The thoracic esophagus is patulous with air-fluid levels presumablyincreasing the risk for aspiration. No definite esophageal wall thickeninggiven the chosen technique. 6. ?Cholelithiasis with the partially visualized, or wall appearingedematous. Correlation with biliary laboratory values is recommended withfurther characterization via HIDA scan as warranted. RL: 6200AF: [id number] End of report. ORDERING PROVIDER: ?BRANDEN SCHAFFER HISTORY: PE suspected, high pretest prob TECHNIQUE: ?Axial CT images of the chest were obtained followingadministration of IV contrast in the arterial phase according to the PEprotocol. Multiplanar 2-D and 3-D/MIP reformations were generated andevaluated. CT scan is performed using the ALARA principle. Technical Quality: Adequate COMPARISON: None FINDINGS: The pulmonary arteries are normal in caliber. No intraluminal fillingdefects are seen to suggest thromboembolic disease. The aorta is normal incaliber. No intraluminal dissection flap. Mild aortic atherosclerosis. Strand-like mucus is seen in the trachea. Otherwise, the central airwaysare patent.. There is mild bilateral dependent atelectasis with bandlikeairspace opacities in the lateral basal left lower lobe. Representsubsegmental atelectasis or scarring. No dense groundglass opacities areairspace consolidation to suggest pneumonia. Nopleural effusion, pleuralthickening, or pneumothorax. There is mild cardiomegaly. No pericardial effusion. No evidence rightheart strain. Coronary artery calcifications are present. No pathologicallyenlarged mediastinal or hilar lymph nodes. The chest wall soft tissues are nonacute. No axillary lymp hadenopathy.Degenerative changes are seen in the spine. No acute or suspicious osseousabnormalities. The thoracic aorta remains tortuous with air-fluid levels presumablyincreasing the risk for aspiration. No definite esophageal wall thickeninggiven the chosen technique. Peripherally calcified gallstone is partiallyvisualized gallbladder lumen. The visualized color wall appears edematous. [facility], Radiant Results Inft User - 01/13/2021 4:54 AM CDT ORDERING PROVIDER: BRANDEN PATELHISTORY: PE suspected, high pretest prob TECHNIQUE: Axial CT images of the chest were obtained followingadministration of IV contrast in the arterial phase according to the PEprotocol. Multiplanar 2-D and 3-D/MIP reformations were generated andevaluated.CT scan is performed using the ALARA principle.Technical Quality: AdequateCOMPARISON: NoneFINDINGS: The pulmonary arteries are normal in caliber. No intraluminal fillingdefects are seen to suggest thromboembolic disease. The aorta is normal incaliber. No intraluminal dissection flap. Mild aortic atherosclerosis.Strand-like mucus is seen in the trachea. Otherwise, the central airwaysare patent.. There is mild bilateral dependent atelectasis with bandlikeairspace opacities in the lateral basal left lower lobe. Representsubsegmental atelectasis or scarring. No dense groundglass opacities areairspace consolidation to suggest pneumonia. No pleural effusion, pleuralthickening, or pneumothorax.There is mild cardiomegaly. No pericardial effusion. No evidence rightheart strain. Coronary artery calcifications are present. No pathologicallyenlarged mediastinal or hilar lymph nodes.The chest wall soft tissues are nonacute. No axillary lymphadenopathy.Degenerative changes are seen in the spine. No acuteor suspicious osseousabnormalities.The thoracic aorta remains tortuous with air-fluid levels presumablyincreasing the risk for aspiration. No definite esophageal wall thickeninggiven the chosen technique. Peripherally calcified gallstone is partiallyvisualized gallbladder lumen. The visualized color wall appears edematous.IMPRESSION1. No pulmonary arterial embolism or acute aortic pathology.2. Dependent and subsegmental atelectasis an/or scarring. No CT findingsto suggest pneumonia.3. Mild cardiomegaly. No pericardial effusion or evidence of right heartstrain.4. Aortic atherosclerosis and coronary artery calcification.5. The thoracic esophagus is patulous with air-fluid levels presumablyincreasing the risk for aspiration. No definite esophageal wall thickeninggiven the chosen technique.6.Cholelithiasis with the partially visualized, or wall appearingedematous. Correlation with biliary l aboratory values is recommended withfurther characterization via HIDA scan as warranted.RL: 6200AF: [id number] of report. [facility] [id number] 09:52:461. ?No pulmonary arterial embolism or acute aortic pathology. 2. ?Dependent and subsegmental atelectasis an/or scarring. No CT findingsto suggest pneumonia. 3. ?Mild cardiomegaly. No pericardial effusion or evidence of right heartstrain. 4. ?Aortic atherosclerosis and coronary artery calcification.5. ?The thoracic esophagus is patulous with air-fluid levels presumablyincreasing the risk for aspiration. No definite esophageal wall thickeninggiven the chosen technique. 6. ?Cholelithiasis with the partially visualized, or wall appearingedematous. Correlation with biliary laboratory values is recommended withfurther characterization via HIDA scan as warranted. RL: 6200AFC: [id number] End of report. ORDERING PROVIDER: ?BRANDEN SCHAFFER HISTORY: PE suspected, high pretest prob TECHNIQUE: ?Axial CT images of the chest were obtained followi ngadministration of IV contrast in the arterial phase according to the PEprotocol. Multiplanar 2-D and 3-D/MIP reformations were generated andevaluated. CT scan is performed using the ALARA principle. Technical Quality: Adequate COMPARISON: None FINDINGS: The pulmonary arteries are normal in caliber . No intraluminal fillingdefects are seen to suggest thromboembolic disease. The aorta is normal incaliber. No intraluminal dissection flap. Mild aortic atherosclerosis. Strand-like mucus is seen in the trachea. Otherwise, the central airwaysare patent.. There is mild bilateral dependent atelectasis with bandlikeairspace opacities in the lateral basal left lower lobe. Representsubsegmental atelectasis or scarring. No dense groundglass opacities areairspace consolidation to suggest pneumonia. Nopleural effusion, pleuralthickening, or pneumothorax. There is mild cardiomegaly. No pericardial effusion. No evidence rightheart strain. Coronary artery calcifications are present. No pathologicallyenlarged mediastinal or hilar lymph nodes. The chest wall soft tissues are nonacute. No axillary lymphadenopathy.Degenerative changes are seen in the spine. No acute or suspicious osseousabnormalities. The thoracic aorta remains tortuous with air-fluid levels presumablyincreasing the risk for aspiration. No definite esophageal wall thickeninggiven the chosen technique. Peripherally calcified gallstone is partiallyvisualized gallbladder lumen. The visualized color wall appears edematous. [facility], Radiant Results Inft User - 01/13/2021 4:54 AM CDTFormatting of this note might be different from the o riginal.ORDERING PROVIDER: BRANDEN PATELHISTORY: PE suspected, high pretest prob TECHNIQUE: Axial CT images of the chest were obtained followingadministration of IV contrast in the arterial phase according to the PEprotocol. Multiplanar 2-D and 3-D/MIP reformations were generated andevaluated.CT scan is performed using the ALARA principle.Technical Quality: AdequateCOMPARISON: NoneFINDINGS: The pu lmonary arteries are normal in caliber. No intraluminal fillingdefects are seen to suggest thromboembolic disease. The aorta is normal incaliber. No intraluminal dissection flap. Mild aortic atherosclerosis.Strand-like mucus is seen in the trachea. Otherwise, the central airwaysare patent.. There is mild bilateral dependent atelectasis with bandlikeairspace opacities in the lateral basal left lower lobe. Representsubsegmental atelectasis or scarring. No dense groundglass opacities areairspace consolidation to suggest pneumonia. No pleural effusion, pleuralthickening, or pneumothorax.There is mild cardiomegaly. No pericardial effusion. No evidence rightheart strain. Coronary artery calcificat ions are present. No pathologicallyenlarged mediastinal or hilar lymph nodes.The chest wall soft tissues are nonacute. No axillary lymphadenopathy.Degenerative changes are seen in the spine. No acuteor suspicious osseousabnormalities.The thoracic aorta remains tortuous with air-fluid levels presumablyincreasing the risk for aspiration. No definite esophageal wall thickeninggiven the chosen technique. Peripherally calcified gallstone is partiallyvisualized gallbladder lumen. The visualized color wall appears edematous.IMPRESSION1. No pulmonary arterial embolism or acute aortic pathology.2. Dependent and subsegmental atelectasis an/or scarring. No CT findingsto suggest pneumonia.3. Mild cardi omegaly. No pericardial effusion or evidence of right heartstrain.4. Aortic atherosclerosis and coronary artery calcification.5. The thoracic esophagus is patulous with air-fluid levels presumablyincreasing the risk for aspiration. No definite esophageal wall thickeninggiven the chosen technique.6.Cholelithiasis with the partially visualized, or wall appearingedematous. Correlation with biliary laboratory values is recommended withfurther characterization via HIDA scan as warranted.RL: 6200AFC: [id number] of report. [facility] 2021-01-13 03:19:05* Test Item Value Reference Range Interpretation Comme nts TROPONIN I (test code = 2778481097) 1.170 ng/mL See_Comment H [Automated message] The system which generated this result transmitted reference range: <=0.034. The reference range was not used to interpret this result as normal/abnormal. FAISAL (test code = FAISAL) Equal or Less than 0.034 ng/ml---Normal ?Note: Cardiac troponin begins to rise 3-4 hours after the onset of ischemia. Repeat in 4-6 hours if the sample was drawn within 3-4 hours of the onset of the symptom and found normal. Between 0.035 and 0.120 ng/mL--- Borderline. Questionable myocardial injury or necrosis ? ?Note: Serial measurement may be necessary to confirm or exclude the diagnosis of myocardial injury or necrosis; Clinical correlation (symptoms, EKGs, imaging studies, and others) required; Repeat in 4-6 hours if clinically indicated. ? Equal or Higher than 0.121 ng/mL---Abnormal. Myocardial Injury or Necrosis Likely ? Biotin has been reported to cause a negative bias, interpret results relative to patient's use of biotin. ? Lab Interpretation (test code = 44461-2) Abnormal [facility] [id number] 02:45:38* Test Item Value Reference Range Interpretation Comme nts APTT Patient (test code = 3173-2) See_Comment [Automated messa ge] The system which generated this result transmitted reference range: 26 - 36 Seconds. The reference range was not used to interpret this result as normal/abnormal. Lab Interpretation (test code = 23228-0) Normal [facility] [id number] 19:29:33* Test Item Value Reference Range Interpretation Comme nts TROPONIN I (test code = 4286212979) 0.766 ng/mL See_Comment H [Automated message] The system which generated this result transmitted reference range: <=0.034. The reference range was not used to interpret this result as normal/abnormal. FAISAL (test code = FAISAL) Equal or Less than 0.034 ng/ml---Normal ?Note: Cardiac troponin begins to rise 3-4 hours after the onset of ischemia. Repeat in 4-6 hours if the sample was drawn within 3-4 hours of the onset of the symptom and found normal. Between 0.035 and 0.120 ng/mL--- Borderline. Questionable myocardial injury or necrosis ? ?Note: Serial measurement may be necessary to confirm or exclude the diagnosis of myocardial injury or necrosis; Clinical correlation (symptoms, EKGs, imaging studies, and others) required; Repeat in 4-6 hours if clinically indicated. ? Equal or Higher than 0.121 ng/mL---Abnormal. Myocardial Injury or Necrosis Likely ? Biotin has been reported to cause a negative bias, interpret results relative to patient's use of biotin. ? Lab Interpretation (test code = 64660-8) Abnormal [facility] Notes Date/Time Note Provider Source 2023-08-18 09:55:02 Spoke to spouse. Will speak with Dr. Farah tomorrow or her PCP regarding Zofran. Pt is still having some nausea/vomiting. They also want to talk about getting a hysterectomy. BETHANIE RIOS RN 08/18/2023 9:56 AM [facility] Bethanie Rios RN [facility] 2023-08-16 16:06:05 LM on for pt to return call. BETHANIE RIOS RN 08/16/2023 4:07 PM [facility] 2023-08-16 15:52:55 Patient's spouse Gene is calling stating patient was seen Tuesday, he states a prescription for Zofran was suppose to be called in and hasn't been. He is requesting a call back for a follow up. [facility] Shante Prieto [facility] 2023-08-11 15:12:38 Please see mychart message. BETHANIE RIOS RN 08/11/2023 3:12 PM NA Rios RN [facility] 2023-08-11 15:08:17 Name and verified. Pt stated that she has constipation. No BM x 3 days. Manual removed stool from rectum yesterday. Has been taking Metamucil and drinking 1.5 gal water daily. Pt stated that her pessary moved as she can now feel it and has decreased urine output. Advised pt that Dr. Cai agreed to remove pessary tomorrow and she will see Gagan on Tuesday for placement. Advised pt that if she does not void every 6-8 hrs or feels full/abd pain- she must go to ED. I also explained to pt that she can take Miralax per Dr. Farah's last OV. She may also use a glycerin suppository to help soften stool at rectum. Pt verbalized understanding. BETHANIE RIOS RN 08/11/2023 3:11 PM NA Rios RN [facility] 2023-08-11 09:21:00 Pt spouse is calling says they dont have access to [employer] and pt is now saying she thinks the device that was inserted has moved want to discuss. Please call pt [phone] NA Love [facility] 2023-08-10 15:49:42 Mychart message sent. BETHANIE RIOS RN 08/10/2023 3:49 PM [facility] 2023-08-10 15:39:37 Patient is calling to follow up on the below encounter. She wants to be called back at [phone] NA Prieto [facility] 2023-08-10 14:06:19 Pt says she having nausea thinks it may be due to her yeast infection she was seen for recently. Is asking for nausea med. [facility] 2023-08-05 09:30:00 Addended by: CRISTELA FARAH MD on: 08/09/2023 01:48 PM Modules accepted: [facility]"
[2024-09-26 10:02] LABS: SARS-CoV-2 Antigen CONTROL BLUE LINE VIS/BG OK; SARS-CoV-2 Antigen Rapid Res Negative (Negative)
[2024-09-26 10:50] LABS: Absolute Eosinophils 0.1 K/uL (0-0.5); Absolute Lymphocytes (CBC) 0.7 K/uL (0.7-4.9); Absolute Monocytes 0.1 K/uL (0.1-1.3); Absolute Neutrophil 2.7 K/uL (1.8-8.0); Basophils % 0.9 % (0-1.3); Eosinophils % 2.3 % (0-4.4); Hematocrit 39.2 % (36.0-45.0); Hemoglobin 12.8 g/dL (12.0-15.0); Lymphocytes % 19.9 % (15.3-44.8); MCHC 32.6 g/dL (32.0-36.0); MCV 92.1 fL (80-100); MPV 9.1 fL (7.6-11.3); Neutrophils % 72.9 % (41.7-73.7); Nucleated Red Blood Cells % 0.1 % (0-0); Platelets 234 thou/uL (152-406); RBC Red Blood Cell Count 4.25 M/uL (3.86-4.86); Red Cell Distribution Width 14.8 % (12.1-15.2)
[2024-09-26 10:51] LABS: PT Prothrombin Time 11.4 SECONDS (9.4-12.5); Protime INR 1.09
[2024-09-26 11:02] LABS: ALT/SGPT 15 U/L (13-56); AST/SGOT 22 U/L (15-37); Albumin 2.9 g/dL (3.4-5.0); Albumin/Globulin Ratio 0.8 (1.1-1.8); Alkaline Phosphatase 97 U/L (45-117); Anion Gap 6.5 mEq/L (5.0-15.0); BUN Blood Urea Nitrogen 6 mg/dL (7-18); Bicarbonate 30 mEq/L (21-32); Bilirubin Total 0.3 mg/dL (0.2-1.0); Globulin 3.7 g/dL (2.3-3.5); Glomerular Filtration Rate 98 ml/min (=/>90); Glucose Level 83 mg/dL (74-106); Lipase 14 U/L (13-75); Magnesium 2.3 mg/dL (1.6-2.4); NT PRO-BNP 108 pg/mL (<125); Potassium 4.5 mEq/L (3.5-5.1); Protein, Total 6.6 g/dL (6.4-8.2); Sodium Level 138 mEq/L (136-145); Troponin High Sensitivity 5.5 pg/mL (<58.9)
[2024-09-26 11:03] LABS: Bilirubin Direct < 0.2 mg/dL (0-0.2); Bilirubin Indirect, Calculated 0.1 mg/dL (0.2-0.8)
--- NOTE | 2024-09-26 11:43 | RAD REPORT ---
EXAM: CT CHEST, ABDOMEN AND PELVIS WITHOUT CONTRAST CLINICAL INDICATION: Female, 64 years chest/abd/back pain;Chest pain TECHNIQUE: CT chest, abdomen and pelvis was performed, with IV contrast, as per department protocol. Axial, sagittal and coronal reconstructions were obtained. One or more of the following dose reduction techniques were used: Automated exposure control, adjustment of the mA and/or kV according to the patient size, and/or iterative reconstruction. Unless otherwise specified, incidental findings do not require dedicated imaging follow-up. [id number]. COMPARISON: No prior exam. FINDINGS: Chest: LOWER NECK: Visualized thyroid gland and soft tissues are normal. LUNGS AND AIRWAYS: Airways are clear. No evidence of airspace or interstitial process.No suspicious a nd/or stable pulmonary nodules. PLEURA: No pleural effusion. No pneumothorax. Hemidiaphragms are normally positioned. MEDIASTINUM AND LYMPH NODES: No mediastinal mass or fluid collection. Normal size mediastinal, hilar, and axillary lymph nodes. Posteriorly projecting diverticulum at the midesophagus which is full of ingested material is noted. This measures 5.8 x 4.2 x 2.7 cm. This may be a pulsion diverticulum. Cir cumferentially thickened distal esophagus. THORACIC AORTA: No thoracic aortic aneurysm. Atherosclerotic changes are present. PULMONARY ARTERIES: Caliber is within normal limits. HEART: Normal heart size. Multivessel coronary artery diseaseNo significant pericardial effusion. Abdomen/Pelvis UPPER GI: No significant abnormality. LIVER: No significant focal abnormality. GALLBLADDER/BILE DUCTS: Cholecystectomy. Moderate extra-hepatic biliary ductal dilatation is present. Consider correlating with LFT's.? PANCREAS: No mass, ductal dilation, or sukh-pancreatic fluid. SPLEEN: Unremarkable. ADRENALS: No adrenal masses. KIDNEYS AND URETERS: No hydronephrosis.No suspicious renal mass. ABDOMINAL AORTA AND OTHER VESSELS: Moderate atherosclerotic changes without aortic aneurysm. PERITONEUM: No abnormal free fluid. No free air. LYMPH NODES: No pathologic lymphadenopathy. ABDOMINAL WALL: Unremarkable SMALL BOWEL/COLON: Small bowel has normal course and caliber. No colonic wall thickening or pericolon ic inflammatory changes.Appendix absent. URINARY BLADDER: Underdistended but grossly unremarkable. REPRODUCTIVE ORGANS: Uterus surgically absent. No adnexal abnormality. MUSCULOSKELETAL: Multilevel degenerative changes in the spine. No acute fracture. ADDITIONAL FINDINGS: None. IMPRESSION: Posteriorly projecting mid esophageal diverticulum measuring nearly 6 cm in maximal dimension contain s ingested food. This may be the source of the patient's chest pain. Other incidental findings as noted above.
--- NOTE | 2024-09-26 11:51 | EDPHYS ---
Physician Documentation [facility] Name: Danna Yoder Age: 64 yrs Sex: Female : 1960 Arrival Date: 09/26/2024 Time: 09:07 Bed 2 Private MD: ED Physician Adam Schaffer HPI: 09/26 09:21 This 64 yrs old Female presents to ER via EMS with complaints of Epigastric Pain. sp3 09:21 64-year-old female with history of TIA, [place], prior colon cancer with in ED currently, sp3 presents to the ED with chief complaint shortness of breath, chest pain radiating to the mid back and constipation. Last bowel movement yesterday after several days of stool softener. She denies any cough, fever, sore throat, headache, syncope, rash, bleeding, or any other signs or symptoms on ROS at this time. She denies being on any anticoagulants. She is status post cholecystectomy. She also denies vomiting, diarrhea or other GI symptoms.. Historical: - Allergies: 09:19 No Known Allergies; db - PMHx: 09:19 Irritable bowel syndrome; COLON CENCER; Transient cerebral ischemia; Myocardial db infarction; Gastroesophageal reflux disease; - Immunization history:: Adult Immunizations unknown. - Infectious Disease History:: Denies. - Social history:: Smoking status: Patient denies any tobacco usage or history of. ROS: 09:22 Constitutional: Negative for fever, chills, and weight loss, Eyes: Negative for injury, sp3 pain, redness, and discharge, ENT: Negative for injury, pain, and discharge, Neck: Negative for injury, pain, and swelling, MS/Extremity: Negative for injury and deformity, Skin: Negative for injury, rash, and discoloration, Neuro: Negative for headache, weakness, numbness, tingling, and seizure, Psych: Negative for depression, anxiety, suicide ideation, homicidal ideation, and hallucinations, Allergy/Immunology: Negative for hives, rash, and allergies, Endocrine: Negative for neck swelling, polydipsia, polyuria, polyphagia, and marked weight changes, 09:22 All other systems are negative, Exam: 09:23 Constitutional: This is a well developed, well nourished patient who is awake, alert, sp3 and in no acute distress. Head/Face: Normocephalic, atraumatic. Eyes: Pupils equal round and reactive to light, extra-ocular motions intact. Lids and lashes normal. Conjunctiva and sclera are non-icteric and not injected. Cornea within normal limits. Periorbital areas with no swelling, redness, or edema. Neck: Trachea midline, no thyromegaly or masses palpated, and no cervical lymphadenopathy. Supple, full range of motion without nuchal rigidity, or vertebral point tenderness. No Meningismus. Chest/axilla: Normal chest wall appearance and motion. Nontender with no deformity. No lesions are appreciated. Cardiovascular: Regular rate and rhythm with a normal S1 and S2. No gallops, murmurs, or rubs. Normal PMI, no JVD. No pulse deficits. Respiratory: Lungs have equal breath sounds bilaterally, clear to auscultation and percussion. No rales, rhonchi or wheezes noted. No increased work of breathing, no retractions or nasal flaring. Back: No spinal tenderness. No costovertebral tenderness. Full range of motion. Skin: Warm, dry with normal turgor. Normal color with no rashes, no lesions, and no evidence of cellulitis. MS/ Extremity: Pulses equal, no cyanosis. Neurovascular intact. Full, normal range of motion. Neuro: Awake and alert, GCS 15, oriented to person, place, time, and situation. Cranial nerves II-XII grossly intact. Motor strength 5/5 in all extremities. Sensory grossly intact. Cerebellar exam normal. Normal gait. Psych: Awake, alert, with orientation to person, place and time. Behavior, mood, and affect are within normal limits. 09:23 Abdomen/GI: Mild pain to the epigastric region. No peritoneal signs, rebound or guarding noted., 10:45 ECG was reviewed by the Attending Physician. EKG demonstrates normal sinus rhythm at 70 sp3 bpm with normal intervals, normal QRS, normal axis, nonspecific diffuse ST's ST changes without evidence of acute ischemia. Vital Signs: 09:08 BP 118 / 77; Pulse 83; Resp 18; Temp 97.7(O); Pulse Ox 98% ; Weight 45.36 kg; Height 5 db ft. 1 in. ; 10:00 BP 99 / 77; Pulse 72; Resp 16; Pulse Ox 98% on R/A; db 09:08 Body Mass Index 18.89 (45.36 kg, 154.94 cm) db MDM: 09:13 Medical Screening Exam initiated sp3 09:23 Data reviewed: vital signs, nurses notes, old medical records, lab test result(s), EKG, sp3 radiologic studies. ED course: 64-year-old female with PMH above now with shortness of breath, chest pain, epigastric pain radiating to the back. Symptoms are vague. Differential diagnosis is broad and includes acute coronary syndrome, pulmonary infection, pancreatitis, other biliary pathology, other abdominal pathology including constipation, UTI/pyelonephritis spectrum, kidney stone, and to a lesser degree vascular pathology including aorta. Workup will be broad and include CT scan of the chest abdomen pelvis, routine labs, urine analysis, EKG and general supportive care. Disposition pending workup and patient course.. 11:49 ED course: CT demonstrates 6 cm diverticulum containing undigested food midesophagus sp3 which could represent some of patient's chest pain. However pain is more on the right lateral side where family now states that she had a prior rib fracture about a month ago. CT scan demonstrates no other abnormality. EKG and labs are unremarkable. Vital signs remain normal. We will safely discharge patient home. Patient is scheduled for a routine colonoscopy next week and I have told her to follow-up with the same doctor regarding EGD to assess the diverticulum. We have also given her a copy of her CT report to take with her.. 09/26 09:14 Order name: Basic Metabolic Panel; Complete Time: :09/26 09:14 Order name: CBC with Diff; Complete Time: :09/26 09:14 Order name: LFT's; Complete Time: :09/26 09:14 Order name: Magnesium; Complete Time: 11:09/26 09:14 Order name: NT PRO-BNP; Complete Time: :09/26 09:14 Order name: PT-INR; Complete Time: :09/26 09:14 Order name: Troponin HS; Complete Time: 11:09/26 09:24 Order name: SARS RAPID; Complete Time: 11:3 09/26 09:24 Order name: Flu; Complete Time: :3 09/26 10:39 Order name: Lipase; Complete Time: 11:25 EDMS 09/26 09:14 Order name: CT Chest, Abdomen, Pelvis - W/Contrast; Complete Time: 11:45 sp3 09/26 09:14 Order name: EKG; Complete Time: 09:14 sp3 09/26 09:14 Order name: Cardiac monitoring; Complete Time: 09:50 sp3 09/26 09:14 Order name: EKG - Nurse/Tech; Complete Time: 09:50 sp3 09/26 09:14 Order name: IV Saline Lock; Complete Time: 09:50 sp3 09/26 09:14 Order name: Labs collected and sent; Complete Time: 09:50 sp3 09/26 09:14 Order name: O2 Per Protocol; Complete Time: 09:50 sp3 09/26 09:14 Order name: O2 Sat Monitoring; Complete Time: 09:50 sp3 Administered Medications: No medications were administered Disposition Summary: 09/26/24 11:50 Discharge Ordered Notes: Location: Home sp3 Condition: Stable sp3 Diagnosis - Right flank pain, mid esophageal diverticulum sp3 Followup: sp3 - With: Private Physician - When: Upon discharge from the Emergency Department - Reason: Continuance of care Discharge Instructions: - Discharge Summary Sheet sp3 - Flank Pain, Adult sp3 Forms: - Medication Reconciliation Form sp3 - Antibiotic Education sp3 - Prescription Opioid Use sp3 - Patient Portal Instructions sp3 - Leadership Thank You Letter sp3 Signatures: Dispatcher [employer] Adam Huerta MD MD sp3 Jennifer Chavarria RN RN db Corrections: (The following items were deleted from the chart) 10:40 09:23 LIPASE+C.LAB.BRZ ordered. EDMT EDMT
--- NOTE | 2024-09-26 11:51 | ER ---
Nurse's Notes [facility] Name: Danna Yoder Age: 64 yrs Sex: Female : 1960 Arrival Date: 09/26/2024 Time: 09:07 Bed 2 Private MD: Diagnosis: Right flank pain, mid esophageal diverticulum Presentation: 09/26 09:08 Chief complaint: EMS states: SOB, EPIGASTRIC PAIN RADIATING TO BACK HX OF MULTIPLE TIA, db [place]. EMS GAVE ZOFRAN 2 MG IVP. Coronavirus screen: Client denies travel out of the [place] in the last 14 days. At this time, the client does not indicate any symptoms associated with coronavirus-19. Ebola Screen: Patient negative for fever greater than or equal to 101.5 degrees Fahrenheit, and additional compatible Ebola Virus Disease symptoms Patient denies exposure to infectious person. Patient denies travel to an Ebola-affected area in the 21 days before illness onset. No symptoms or risks identified at this time. Initial Sepsis Screen: Does the patient meet any 2 criteria? No. Patient's initial sepsis screen is negative. Does the patient have a suspected source of infection? No. Patient's initial sepsis screen is negative. Risk Assessment: Do you want to hurt yourself or someone else? Patient reports no desire to harm self or others. Onset of symptoms was September 26, 2024. 09:08 Method Of Arrival: EMS: [facility] db 09:08 Acuity: ASHLEY 2 db Triage Assessment: 09:19 General: Appears in no apparent distress. comfortable, Behavior is calm, cooperative. db Pain: Complains of pain in chest and epigastric area. Pain: Pain radiates to back. Neuro: Level of Consciousness is awake, alert, obeys commands, Oriented to person, place, time, situation. Respiratory: Airway is patent Respiratory effort is even, unlabored, Respiratory pattern is regular, symmetrical. GI: Reports upper abdominal pain, nausea. Historical: - Allergies: : No Known Allergies; db - PMHx: : Irritable bowel syndrome; COLON CENCER; Transient cerebral ischemia; Myocardial db infarction; Gastroesophageal reflux disease; - Immunization history:: Adult Immunizations unknown. - Infectious Disease History:: Denies. - Social history:: Smoking status: Patient denies any tobacco usage or history of. Screenin:02 [facility] ED Fall Risk Assessment (Adult) History of falling in the last 3 months, db including since admission No falls in past 3 months (0 pts) Confusion or Disorientation No (0 pts) Intoxicated or Sedated No (0 pts) Impaired Gait No (0 pts) Mobility Assist Device Used No (0 pt) Altered Elimination No (0 pt) Score/Fall Risk Level 0 - 2 = Low Risk Oriented to surroundings, Maintained a safe environment. Abuse screen: Denies threats or abuse. Denies injuries from another. Nutritional screening: No deficits noted. Tuberculosis screening: No symptoms or risk factors identified. Assessment: 09:25 Reassessment: Patient appears in no apparent distress at this time. Patient and/or db family updated on plan of care and expected duration. Pain level reassessed. Patient is alert, oriented x 3, equal unlabored respirations, skin warm/dry/pink. SEE TRIAGE FOR INITIAL ASSESSMENT. Vital Signs: 09:08 BP 118 / 77; Pulse 83; Resp 18; Temp 97.7(O); Pulse Ox 98% ; Weight 45.36 kg; Height 5 db ft. 1 in. ; 10:00 BP 99 / 77; Pulse 72; Resp 16; Pulse Ox 98% on R/A; db 09:08 Body Mass Index 18.89 (45.36 kg, 154.94 cm) db ED Course: 09:13 Patient arrived in ED. sp3 09:13 Adam Schaffer MD is Attending Physician. sp3 09:15 Maintain EMS IV. Dressing intact. Good blood return noted. Site clean \T\ dry. Gauge \T\ db site: 22 G LEFT HAND. 09:16 Jennifer Chavarria, DOTTIE is Primary Nurse. db 09:19 Triage completed. db 09:19 Arm band placed on Patient placed in an exam room. db 09:45 Missed attempt(s): 22 gauge in right wrist. Bleeding controlled, band aid applied, db catheter tip intact. 09:50 Flu Sent. db 09:50 SARS RAPID Sent. db 09:50 Missed attempt(s): 22 gauge in right forearm. Bleeding controlled, band aid applied, db catheter tip intact. 10:10 Inserted saline lock: 22 gauge in left forearm, using aseptic technique. Missed ld1 attempt(s): 22 gauge in left forearm. 11:07 Patient has correct armband on for positive identification. Bed in low position. Call db light in reach. Side rails up X2. Client placed on continuous cardiac and pulse oximetry monitoring. NIBP monitoring applied. gambling monitor on. Pulse ox on. NIBP on. Warm blanket given. Pillow given. 11:12 CT Chest, Abdomen, Pelvis - W/Contrast In Process Unspecified. EDMS 12:20 No provider procedures requiring assistance completed. IV discontinued, intact, ld1 bleeding controlled, No redness/swelling at site. Administered Medications: No medications were administered Medication: 11:07 VIS not applicable for this client. db Outcome: 11:50 Discharge ordered by . edwin 12:20 Discharged to home via wheelchair, with family, ld1 12:20 Condition: stable 12:20 Discharge instructions given to patient, family, Instructed on discharge instructions, follow up and referral plans. Demonstrated understanding of instructions, follow-up care, 12:21 Patient left the ED. ld1 Signatures: Dispatcher [employer] EDMS Mariely Tomas RN RN ld1 Adam Schaffer MD MD sp3 Jennifer Chavarria RN RN db
[2024-09-26 14:47] VITALS: TEMP 97.7; O2SAT 98
[2024-09-26 14:48] VITALS: BP 99/77
== END 2024-09-26 12:21 | disposition home or self-care (01) ==
LOC: ER 09:07
DX: K22.5 Diverticulum of esophagus, acquired (principal); Z90.49 Acquired absence of other specified parts of digestive tract; Z11.52 Encounter for screening for COVID-19; Z85.038 Personal history of other malignant neoplasm of large intestine
CPT/HCPCS: 85025; 80048; 36415; 83735; 85610; 80076; 84484; 83690; 83880; 87804 ×2; 71260; 74177; 87811; Q9967; 93005